=== PATIENT | male | born 1985 | race Two or more races ===

== ENCOUNTER 2019-03-07 15:14 | Emergency (ER) | payer OTHER ==
[~2019-03-07] VITALS: Ht 175.3 cm; Wt 90.7 kg
[2019-03-07 15:23] VITALS: BP 129/86
[2019-03-07] MEDS ORDERED: TETANUS-DIPTH-ACEL PERTUSSIS 0.5ML SYRG IM ONE (17:00)
[2019-03-09 09:12] LABS: Hepatitis B Surface Antibody Positive
[2019-03-09 11:28] LABS: Hepatitis B Surface Antigen Negative (Negative)
== END 2019-03-07 17:17 | disposition home or self-care (01) ==
LOC: ER 15:17
DX: S40.812A Abrasion of left upper arm, initial encounter (principal); W50.3XXA Accidental bite by another person, initial encounter; Y93.89 Activity, other specified; Y99.8 Other external cause status; Y92.89 Other specified places as the place of occurrence of the external cause
CPT/HCPCS: 36415; 86703; 86706; 86803; 87340; 90471; 90715

== ENCOUNTER → 2019-06-23 | Outpatient (CLI) | payer OTHER ==
[2019-06-25 10:35] LABS: Hepatitis B Surface Antibody Negative
[2019-06-25 13:35] LABS: Hepatitis B Surface Antigen Negative (Negative)
== END | disposition home or self-care (01) ==
LOC: LAB 11:40
PROVIDERS: ATTEND Nurse Practitioner
DX: S61.233A Puncture wound without foreign body of left middle finger without damage to nail, initial encounter (principal); Z77.21 Contact with and (suspected) exposure to potentially hazardous body fluids; X58.XXXA Exposure to other specified factors, initial encounter; Y93.89 Activity, other specified; Y92.89 Other specified places as the place of occurrence of the external cause; Y99.8 Other external cause status
CPT/HCPCS: 36415; 86703; 86706; 86803; 87340

== ENCOUNTER → 2019-09-29 | Outpatient (CLI) | payer OTHER ==
[2019-10-01 08:44] LABS: Hepatitis B Surface Antibody Positive
[2019-10-01 09:46] LABS: Hepatitis B Surface Antigen Negative (Negative)
== END | disposition home or self-care (01) ==
LOC: LAB 15:15
PROVIDERS: ATTEND Preventive Medicine Preventive Medicine/Occupational Environmental Medicine
DX: S41.032A Puncture wound without foreign body of left shoulder, initial encounter (principal); S61.233A Puncture wound without foreign body of left middle finger without damage to nail, initial encounter; Z77.21 Contact with and (suspected) exposure to potentially hazardous body fluids; X58.XXXA Exposure to other specified factors, initial encounter; Y93.89 Activity, other specified; Y92.89 Other specified places as the place of occurrence of the external cause; Y99.8 Other external cause status
CPT/HCPCS: 36415; 86703; 86706; 86803; 87340

== ENCOUNTER → 2020-01-05 | Outpatient (CLI) | payer OTHER ==
[2020-01-07 09:27] LABS: Hepatitis B Surface Antibody Positive
[2020-01-07 11:37] LABS: Hepatitis B Surface Antigen Negative (Negative)
== END | disposition home or self-care (01) ==
LOC: LAB 13:51
PROVIDERS: ATTEND Nurse Practitioner
DX: Z77.21 Contact with and (suspected) exposure to potentially hazardous body fluids (principal)
CPT/HCPCS: 36415; 86703; 86706; 86803; 87340